=== PATIENT | female | born 1995 | race American Indian/Alaskan Native ===

== ENCOUNTER 2020-10-15 20:20 | Emergency (ER) | payer MEDICAID, OTHER ==
[2020-10-15 20:24] VITALS: BP 127/93; PULSE 94
--- NOTE | 2020-10-15 21:13 | EDM.PDOC ---
ED HPI GENERAL MEDICAL PROBLEM - General Chief Complaint: General Stated Complaint: Arm tingling Time Seen by Provider: 10/15/20 20:50 Source of Information: Reports: Patient History Limitations: Reports: No Limitations - History of Present Illness INITIAL COMMENTS - FREE TEXT/NARRATIVE: Beata is a 25 yo female who presents to the ED with complaints of numbness and tingling in her right pinky. States when she woke up this morning she had thought she had slept wrong. States she did take Tylenol and ibuprofen with mild relief. Admits it has bothered her all day. 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 She denies any recent trauma. No prior history of neck/cervical pain or injury. States she has history of low back pain with a herniated disc that she gets trigger point injections for. She is able to feel touch to the hand but feels it gives her more discomfort. Has difficulty opening and closing her hand d/t the discomfort. Right Lower Arm Pain Score (Numeric/FACES): 8 - Related Data Allergies Allergy/AdvReac Type Severity Reaction Status Date / Time hydromorphone [From Dilaudid] Allergy Anaphylactic Verified 10/15/20 20:25 Shock Home Meds: Home Meds Amitriptyline HCl 150 mg PO BEDTIME 08/01/17 [History] Loratadine [Claritin] 10 mg PO DAILY 02/14/20 [History] clonazePAM [Clonazepam] 1 mg PO Q4H PRN 02/14/20 [History] Ibuprofen [Advil] 400 mg PO Q6H PRN 07/18/20 [History] Past Medical History - Past Health History Medical/Surgical History: Denies Medical/Surgical History HEENT History: Reports: Impaired Vision Cardiovascular History: Reports: None Respiratory History: Reports: Asthma Gastrointestinal History: Reports: Helicobacter Pylori Genitourinary History: Reports: None [employer] History: Reports: None Musculoskeletal History: Reports: Back Pain, Chronic, Other (See Below) Other Musculoskeletal History: bulging disk Neurological History: Reports: Migraines Psychiatric History: Reports: Anxiety Endocrine/Metabolic History: Reports: Obesity/BMI 30+ Hematologic History: Reports: None Immunologic History: Reports: None Oncologic (Cancer) History: Reports: None Dermatologic History: Reports: None - Infectious Disease History Infectious Disease History: Reports: None - Past Surgical History Head Surgeries/Procedures: Reports: None Social & Family History - Family History Family Medical History: No Pertinent Family History - Tobacco Use Tobacco Use Status *Q: Never Tobacco User Second Hand Smoke Exposure: No - Caffeine Use Caffeine Use: Reports: Coffee, Soda Other Caffeine Use: daily - Recreational Drug Use Recreational Drug Use: No ED ROS GENERAL - Review of Systems Review Of Systems: See Below Constitutional: Reports: No Symptoms HEENT: Reports: No Symptoms Respiratory: Reports: No Symptoms Cardiovascular: Reports: No Symptoms Musculoskeletal: Reports: Arm Pain, Hand Pain. Denies: Neck Pain, Shoulder Pain Skin: Reports: No Symptoms Neurological: Reports: Numbness, Tingling, Weakness ED EXAM, GENERAL - Physical Exam Exam: See Below Exam Limited By: No Limitations General Appearance: Alert, No Apparent Distress Neck: Normal Inspection, Tender Lateral (right trapezius muscle). No: Limited Range of Motion, Tender Midline Cardiovascular: Other (normal capillary refill) Peripheral Pulses: 3+: Radial (R) Neurological: Other (exam is limited as patient will barely open and close her hand. Any palpation from light to moderate causes discomfort. Positive ulnar nerve compression test. Negative Spurling's test. ) Psychiatric: Normal Affect, Normal Mood Skin Exam: Warm, Dry, Intact, Normal Color Course - Vital Signs Last Recorded V/S: Last Vital Signs Temp 97.0 F 10/15/20 20:22 Pulse 94 10/15/20 20:22 Resp 20 10/15/20 20:22 BP 127/93 H 10/15/20 20:22 Pulse Ox 97 10/15/20 20:22 Departure - Departure Time of Disposition: 21:21 Disposition: Home, Self-Care 01 Clinical Impression: Right hand pain Ulnar nerve compression at multiple levels Qualifiers: Laterality: right Qualified Code(s): G56.21 - Lesion of ulnar nerve, right upper limb - Discharge Information Forms: ED Department Discharge Additional Instructions: 1) Need to follow up with primary tomorrow for referral to physical therapy 2) NSAID's is the main stay of treatment. May use Tylenol in between for break thru pain 3) Toradol 10mg - 1 tablet every 8 hours as needed for pain. Do not double up with NSAID's when taking Toradol 4) Follow recommendations as well from earlier visit at the ED today. 5) Recommend light stretching of the elbow, try not to flex the elbow as keeping it straight might help. Sepsis Event Note (ED) - Evaluation Sepsis Screening Result: No Definite Risk - Focused Exam Vital Signs: Vital Signs Temp Pulse Resp BP Pulse Ox 10/15/20 20:22 97.0 F 94 20 127/93 H 97 - Problem List & Annotations (1) Right hand pain SNOMED Code(s): 45064517 Code(s): M79.641 - PAIN IN RIGHT HAND Status: Acute Current Visit: Yes (2) Ulnar nerve abnormality SNOMED Code(s): 945220052 Code(s): G56.20 - LESION OF ULNAR NERVE, UNSPECIFIED UPPER LIMB Status: Acute Current Visit: Yes Qualifiers: Laterality: right Qualified Code(s): G56.21 - Lesion of ulnar nerve, right upper limb - Assessment/Plan Plan: I am concerned with patient's presented symptoms as it appears to likely be from ulnar nerve. I reviewed patient's chart which she was seen in the ED at 1800 hr s at another facility today. I encourage Beata to follow there recommendations as well. Toradol for break thru pain prescribed. Otherwise, encourage using Tylenol in between. Patient needs to follow up with primary provider. May return to ED if symptoms worsen.
[2020-10-15] MEDS ORDERED: Take Home: Ketorolac 10 MG Tab, 4 Tab Pack ONE (21:15)
[2020-10-15] MEDS ORDERED: Take Home: Ketorolac 10 MG Tab, 4 Tab Pack PO ONE (21:28)
== END 2020-10-15 21:53 | disposition home or self-care (01) ==
LOC: CC.ED 20:20
DX: G56.21 Lesion of ulnar nerve, right upper limb (principal); E66.9 Obesity, unspecified; Z68.41 Body mass index [BMI] 40.0-44.9, adult; Z88.5 Allergy status to narcotic agent
CPT/HCPCS: 99283; A9270